=== PATIENT | male | born 1950 | race Caucasian/White ===

== ENCOUNTER 2022-08-19 13:55 | Emergency (ER) | payer MEDICARE | END 2022-08-19 14:24 | disposition home or self-care (01) | LOC: BURERS 13:55 | DX: K11.5 Sialolithiasis (principal); F17.210 Nicotine dependence, cigarettes, uncomplicated | CPT/HCPCS: 99283 ==

== ENCOUNTER 2022-09-12 10:20 | Emergency (ER) | payer MEDICARE | END 2022-09-12 10:39 | disposition home or self-care (01) | LOC: BURERS 10:20 | DX: I10 Essential (primary) hypertension (principal); F17.290 Nicotine dependence, other tobacco product, uncomplicated | CPT/HCPCS: 99283 ==